=== PATIENT | male | born 1985 | race African-American/Black ===

== ENCOUNTER 2017-08-20 18:12 | Emergency (ER) | payer BC, OTHER ==
[2017-08-20 18:32] VITALS: RESP 18; TEMP 98.7
--- NOTE | 2017-08-20 19:10 | XR ---
EXAMINATION TYPE: XR mandible complete DATE OF EXAM: 08/20/2017 COMPARISON: NONE HISTORY: Pain TECHNIQUE: 5 views FINDINGS: Mandibular ring is intact. I see no fracture. There is no evidence of bony destructive proc ess. Oblique views are limited for evaluation of the temporomandibular joints. IMPRESSION: Negative limited mandible exam. No fracture.
--- NOTE | 2017-08-20 19:11 | ED ---
General Adult HPI - General Source: patient, RN notes reviewed, old records reviewed Mode of arrival: ambulatory Limitations: no limitations <Sara Chaves - Last Filed: 08/20/17 19:06> <Blayne Ho - Last Filed: 08/20/17 19:41> - General Chief complaint: Recheck/Abnormal Lab/Rx Stated complaint: Dislocated jaw Time Seen by Provider: 08/20/17 18:33 - History of Present Illness Initial comments: Patient is a 32-year-old male presents emergency Department chief complaint of right-sided jaw pain, and dislocated right side of his jaw after he yawned today. He reports it occurred at 6:00. Patient states this is happened to him in the past. He reports that he usually can relocate instructed on its own but he was unable to do so today. He reports had a go to the hospital other times for dislocation to the jaws well. (Sara Chaves) - Related Data Home Medications Medication Instructions Recorded Confirmed No Known Home Medications [No 08/20/17 08/20/17 Known Home Medications] Allergies Allergy/AdvReac Type Severity Reaction Status Date / Time No Known Allergies Allergy Verified 08/20/17 18:59 Review of Systems ROS Other: All systems not noted in ROS Statement are negative. <Sara Chaves - Last Filed: 08/20/17 19:06> ROS Other: All systems not noted in ROS Statement are negative. <Blayne Ho - Last Filed: 08/20/17 19:41> ROS Statement: Those systems with pertinent positive or pertinent negative responses have been documented in the HPI. Past Medical History Past Medical History: No Reported History History of Any Multi-Drug Resistant Organisms: None Reported Past Surgical History: Orthopedic Surgery Additional Past Surgical History / Comment(s): left shoulder wrist Past Anesthesia/Blood Transfusion Reactions: No Reported Reaction Past Psychological History: No Psychological Hx Reported Smoking Status: Current every day smoker Past Alcohol Use History: Occasional Past Drug Use History: None Reported - Past Family History Mother Family Medical History: No Reported History <Sara Chaves - Last Filed: 08/20/17 19:06> General Exam Limitations: no limitations General appearance: alert, in no apparent distress Head exam: Present: atraumatic, normocephalic, normal inspection Eye exam: Present: normal appearance ENT exam: Present: normal exam, normal oropharynx, mucous membranes moist, other (Vision is right-sided jaw swelling, tenderness to palpation over the right TMJ.) Neck exam: Present: normal inspection. Absent: tenderness, meningismus, lymphadenopathy Respiratory exam: Present: normal lung sounds bilaterally. Absent: respiratory distress, wheezes, rales, rhonchi, stridor Cardiovascular Exam: Present: regular rate, normal rhythm, normal heart sounds. Absent: systolic murmur, diastolic murmur, rubs, gallop, clicks Neurological exam: Present: alert, oriented X3, CN II-XII intact Psychiatric exam: Present: normal affect, normal mood Skin exam: Present: warm, dry, intact, normal color. Absent: rash <Sara Chaves - Last Filed: 08/20/17 19:06> <Blayne Ho - Last Filed: 08/20/17 19:41> - General Exam Comments Initial Comments: 32-year-old male. No acute distress. (Sara Chaves) Course <Sara Chaves - Last Filed: 08/20/17 19:06> <Blayne Ho - Last Filed: 08/20/17 19:41> Vital Signs 08/20/17 08/20/17 18:28 19:28 Temperature 98.7 F Pulse Rate 80 79 Respiratory 18 18 Rate Blood Pressure 129/77 150/64 O2 Sat by Pulse 99 100 Oximetry - Reevaluation(s) Reevaluation #1: 08/20/17 19:40 PA supervision: The patient did demonstrate evidence of a subluxation of the right mandible. The procedure was explained to the patient and I did supervise the reduction of mandible. Patient is able open close his mouth without any difficulty no pain. No evidence of malocclusion. No sedation was necessary. ( Blayne Ho) Procedures - Orthopedic Joint Reduction Joint #1 Joint Reduction Location: other (Right mandible) Technique Used: traction/counter-traction Post-Reduction Neuro Exam: intact Post-Reduction Vascular Exam: intact Patient Tolerated Procedure: well, no complications <Sara Chaves - Last Filed: 08/20/17 19:06> Medical Decision Making <Sara Chaves - Last Filed: 08/20/17 19:06> <Blayne Ho - Last Filed: 08/20/17 19:41> - Medical Decision Making 32-year-old female presents emergency Department with right-sided jaw dislocation. Patient reports he was yawning. X-ray was completed of the jaw, no evidence of any fractures noted. I did use two-handed relocation technique, and returned the mandible to normal close physician. Patient reports that he feels better afterwards and has full range of motion of the jaw. Patient will be discharged at this time advised ice the jaw, take Motrin for pain, and follow -up with the dental appointment. Patient understands treatment plan will comply. Return parameters were discussed. Discussed case with Dr. Ho, he was also on the exam room while completing the relocation. (Sara Chaves) Disposition Time of Disposition: 19:06 <Sara Chaves - Last Filed: 08/20/17 19:06> <Blayne Ho - Last Filed: 08/20/17 19:41> Clinical Impression: Dislocated jaw Disposition: HOME SELF-CARE Condition: Good Instructions: Mandibular Dislocation (ED) Additional Instructions: Patient has a Motrin Tylenol for pain. Ice the area. Be careful in a rear opening or closing your jaw. Return to emergency department if any alarming signs or symptoms occur. Referrals: Mark Denise MD [Primary Care Provider] - 1-2 days Addendum entered and electronically signed by Sara Chaves PA-C 08/20/17 19 :11: X-ray was reviewed and negative for any acute fracture.
[2017-08-20 19:31] VITALS: BP 150/64; PULSE 79
== END 2017-08-20 19:29 | disposition home or self-care (01) ==
LOC: EC 18:12
DX: S03.01XA Dislocation of jaw, right side, initial encounter (principal); F17.200 Nicotine dependence, unspecified, uncomplicated; X58.XXXA Exposure to other specified factors, initial encounter; Y93.89 Activity, other specified; Y92.009 Unspecified place in unspecified non-institutional (private) residence as the place of occurrence of the external cause
CPT/HCPCS: 21480; 70110; 99284